=== PATIENT | female | born 1995 | race Caucasian/White ===

== ENCOUNTER → 2024-03-14 11:45 | Outpatient (REF) | payer BC, SELFPAY ==
[2024-03-14 15:04] LABS: HIV Combo Negative (Negative)
[2024-03-14 15:08] LABS: Syphilis/T. pallidum Ab Reflex Negative (Negative)
== END ==
LOC: REG 11:45
PROVIDERS: ATTENDING PHYSICIAN Obstetrics & Gynecology; FAMILY PHYSICIAN Family Medicine
DX: Z34.93 Encounter for supervision of normal pregnancy, unspecified, third trimester (principal)
CPT/HCPCS: 36415; 86780; 86850; 86900; 86901; 87389

== ENCOUNTER 2024-04-08 00:59 | Inpatient (IN) | payer BC, SELFPAY ==
[2024-04-08 01:21] VITALS: BP 110/78; BMI 32.8
[2024-04-08 01:36] LABS: % Basophils 0.2 % (0-2); % Eosinophils 0.2 % (0-6); % Immature Granulocytes 0.6 % (0-0.5); % Lymphocytes 7.6 % (20.5-51.1); % Monocytes 5.6 % (1.7-9.3); % Neutrophils 85.8 % (42.2-75.2); Absolute Immature Granulocytes 0.1 10^3/uL (0-0.05); Absolute Lymphocytes 1.4 10^3/uL (1.2-3.4); Absolute Neutrophils 15.5 10^3/uL (1.4-6.5); Hematocrit 39.5 % (37.0-47.0); Hemoglobin 14.3 g/dL (12.0-16.0); Mean Corp Hgb Conc. 36.2 g/dL (33.0-37.0); Mean Corpuscular Hgb 31.5 pg (27.0-31.0); Mean Platelet Volume 11.3 fL (7.4-10.4); Nucleated Red Blood Cells % 0 %; Platelet Count 228 10^3/uL (130-400); Red Blood Cell Count 4.54 10^6/uL (4.20-5.40); Red Cell Dist. Width 13.5 % (11.5-14.5)
[2024-04-08] MEDS: MOTRIN 600 MG PO ×3 (03:13→19:29)
[2024-04-08] MEDS: SENOKOT-S 1 TABLET PO (09:26)
[2024-04-08] MEDS: PRENATAL PLUS 1 TABLET PO (09:26)
[2024-04-09] MEDS: MOTRIN 600 MG PO ×3 (01:35→20:29)
--- NOTE | 2024-04-09 03:41 | DOWNTIME ---
There was a [employer] Client Photo [employer] Printer Downtime on 04/09/2024 from 0100 to 04/09/2024 at 0337. Downtime documentation of patient's care, including medication administrations, has been reconciled in the electronic record per guidelines. Refer to the
patient's paper chart under the miscellaneous tab to see printed paper medication records and downtime forms.
[2024-04-09 05:37] LABS: Hematocrit 31.7 % (37.0-47.0); Hemoglobin 11.3 g/dL (12.0-16.0)
[2024-04-09] MEDS: PRENATAL PLUS 1 TABLET PO (09:18)
[2024-04-09] MEDS: TYLENOL 650 MG PO ×2 (09:18→21:09)
[2024-04-09] MEDS: SENOKOT-S 1 TABLET PO (09:19)
[2024-04-10] MEDS: TYLENOL 650 MG PO (02:24)
[2024-04-10] MEDS: MOTRIN 600 MG PO ×2 (02:24→09:05)
[2024-04-10] MEDS: PRENATAL PLUS 1 TABLET PO (09:05)
[2024-04-10] MEDS: SENOKOT-S 1 TABLET PO (09:05)
[2024-04-11 13:45] LABS: Syphilis/T. pallidum Ab Reflex Negative (Negative)
== END 2024-04-10 12:30 | disposition home or self-care (01) | DRG 807 ==
LOC: LDRP 00:59
PROVIDERS: ADMITTING PHYSICIAN Obstetrics & Gynecology
PROC: 10E0XZZ Delivery of Products of Conception, External Approach (ICD-10-PCS; 2024-04-08)
PROC: 0HQ9XZZ Repair Perineum Skin, External Approach (ICD-10-PCS; 2024-04-08)
DX: O48.0 Post-term pregnancy (principal); Z37.0 Single live birth; Z3A.40 40 weeks gestation of pregnancy; O70.0 First degree perineal laceration during delivery; Z88.2 Allergy status to sulfonamides
CPT/HCPCS: 85014; 85018; 85025; 86780; 86850; 86900; 86901